=== PATIENT | female | born 1985 | race Hispanic/Latino ===

== ENCOUNTER 2025-03-22 16:07 | Emergency (ER) | payer BC ==
[~2025-03-22] VITALS: Ht 157.5 cm; Wt 79.4 kg
[2025-03-22 17:37] LABS: BASOPHILS % 0.4 % (0.0-1.0); EOSINOPHILS % 0.6 % (0.0-6.0); LYMPHOCYTES % 21.1 % (18.0-39.1); MONOCYTES % 3.6 % (4.4-11.3); NEUTROPHILS % 73.9 % (38.7-80.0); RED CELL DISTRIBUTION WIDTH 14.0 % (11.7-14.4)
[2025-03-22 18:06] LABS: INR 0.9
[2025-03-22 18:09] LABS: EST GLOMERULAR FILTRATION RATE 117.0 ML/MIN (>=60)
[2025-03-22 18:18] LABS: LEUKOCYTE ESTERASE ,URINE MODERATE (NEGATIVE); PROTEIN,URINE DIPSTICK NEGATIVE (NEGATIVE); URINE UROBILINOGEN 0.2 mg/dL (0.2 - 1)
[2025-03-22 18:33] LABS: EPITHELIAL CELLS,URINE MODERATE /LPF; WBC,URINE (MAN) 21-50 /HPF (0-5)
[2025-03-22 18:41] LABS: HCG,QUANTITATIVE 42275.72 mIU/mL (0-10)
[2025-03-22] MEDS ORDERED: SODIUM CHLORIDE 0.9% 1000ML 1,000 ML ONE (19:38)
[2025-03-22 19:49] VITALS: PULSE 99; RESP 16; TEMP 98.4
[2025-03-22] MEDS: SODIUM CHLORIDE 0.9% 1000ML 1,000 ML IV STA (19:52)
[2025-03-22] MEDS ORDERED: CEPHALEXIN500 MG PO (21:23)
[2025-03-22 21:25] VITALS: BP 117/63; PULSE 98; RESP 16; TEMP 98.2; O2SAT 99
== END 2025-03-22 21:36 | disposition home or self-care (01) ==
LOC: ER 17:54
DX: O26.892 Other specified pregnancy related conditions, second trimester (principal); O23.42 Unspecified infection of urinary tract in pregnancy, second trimester; N39.0 Urinary tract infection, site not specified; R10.2 Pelvic and perineal pain
CPT/HCPCS: 36415; 76805; 80053; 81001; 84702; 85025; 85610; 85730; 99283; J7030